=== PATIENT | female | born 1970 | race American Indian/Alaskan Native ===

== ENCOUNTER 2018-03-11 17:42 | Emergency (ER) | payer SELFPAY ==
[2018-03-11 18:02] VITALS: BP 141/92
[2018-03-11 19:13] LABS: HCG Qualitative,Urine Negative (Negative)
[2018-03-11 19:15] LABS: Bilirubin,Urine NEG (Negative); Blood,Urine NEG (Negative); Color,Urine Yellow (Yellow); Mucus,Urine FEW /HPF; Protein,Urine <15 mg/dL mg/dL (Negative); Urobilinogen,Urine < 2.0 mg/dL (<2.0)
== END 2018-03-11 20:45 | disposition left against medical advice (07) ==
LOC: ED 17:42
DX: R10.30 Lower abdominal pain, unspecified (principal); Z53.21 Procedure and treatment not carried out due to patient leaving prior to being seen by health care provider
CPT/HCPCS: 81001; 81025

== ENCOUNTER 2018-03-17 20:09 | Emergency (ER) | payer MEDICAID ==
[2018-03-17 20:26] VITALS: BP 148/95
--- NOTE | 2018-03-17 22:55 | Emergency Department Report ---
ED ENT HPI - General Chief complaint: Sore Throat Stated complaint: BODY ACHES Time Seen by Provider: 03/17/18 22:37 Source: patient Mode of arrival: Ambulatory Limitations: No Limitations - History of Present Illness Initial comments: 47-year-old female presents to the emergency room for chills body aches for throat and nasal congestion runny nose and sneezing and watery eyes cough. Patient also complains of faintness or peeling after getting nails done at a salon several days ago. Patient reports she has now allergy to Bactrim she reports that she is out of her lisinopril 10 mg daily past medical history of hypertension gastric ulcer herniated disc gallstones cyst on ovary. MD complaint: sore throat -: days(s) (4) Location: R ear (itchy ears), L ear (itchy ears), throat Severity: mild Consistency: intermittent Improves with: none Worsens with: none Associated Symptoms: cough, sore throat, rhinorrhea, other (sneezing and itchy ears right eyes) - Related Data Previous Rx's Medication Instructions Recorded Last Taken Type Benzonatate [Tessalon Perle] 100 mg PO TID #15 capsule 03/17/18 Unknown Rx Cetirizine HCl [ZyrTEC] 10 mg PO QDAY #30 capsule 03/17/18 Unknown Rx Fluticasone [Flonase] 1 spray NS QDAY #1 bottle 03/17/18 Unknown Rx Lisinopril [Zestril TAB] 10 mg PO QDAY #30 tablet 03/17/18 Unknown Rx Oxymetazoline 0.05% [Afrin] 1 spray NS QDAY 3 Days #1 bottle 03/17/18 Unknown Rx Terbinafine (Nf) [LamiSIL] 250 mg PO QDAY 36 Days #36 tablet 03/17/18 Unknown Rx Allergies Allergy/AdvReac Type Severity Reaction Status Date / Time sulfamethoxazole Allergy Itching Verified 03/11/18 17:57 [From Bactrim] trimethoprim [From Bactrim] Allergy Itching Verified 03/11/18 17:57 ED Dental HPI - General Chief complaint: Sore Throat Stated complaint: BODY ACHES Time Seen by Provider: 03/17/18 22:37 Source: patient Mode of arrival: Ambulatory Limitations: No Limitations - Related Data Previous Rx's Medication Instructions Recorded Last Taken Type Benzonatate [Tessalon Perle] 100 mg PO TID #15 capsule 03/17/18 Unknown Rx Cetirizine HCl [ZyrTEC] 10 mg PO QDAY #30 capsule 03/17/18 Unknown Rx Fluticasone [Flonase] 1 spray NS QDAY #1 bottle 03/17/18 Unknown Rx Lisinopril [Zestril TAB] 10 mg PO QDAY #30 tablet 03/17/18 Unknown Rx Oxymetazoline 0.05% [Afrin] 1 spray NS QDAY 3 Days #1 bottle 03/17/18 Unknown Rx Terbinafine (Nf) [LamiSIL] 250 mg PO QDAY 36 Days #36 tablet 03/17/18 Unknown Rx Allergies Allergy/AdvReac Type Severity Reaction Status Date / Time sulfamethoxazole Allergy Itching Verified 03/11/18 17:57 [From Bactrim] trimethoprim [From Bactrim] Allergy Itching Verified 03/11/18 17:57 ED Review of Systems ROS: Stated complaint: BODY ACHES Other details as noted in HPI ENT: throat pain (itching), congestion, other (rhinorrhea, sneezing, ear itching ) Respiratory: cough Gastrointestinal: denies: abdominal pain, nausea, diarrhea Genitourinary: denies: urgency, dysuria, discharge Musculoskeletal: denies: back pain, joint swelling, arthralgia Skin: rash (both hands peeling and itchiness) Neurological: denies: headache, weakness, paresthesias Psychiatric: denies: anxiety, depression Hematological/Lymphatic: denies: easy bleeding, easy bruising ED Past Medical Hx - Past Medical History Previous Medical History?: Yes Hx Hypertension: Yes Additional medical history: Gastric ulcer, heriated disc, gallstones, cyst on ovaries - Surgical History Past Surgical History?: No - Social History Smoking Status: Light Tobacco Smoker Substance Use Type: None - Medications Home Medications: Home Medications Medication Instructions Recorded Confirmed Last Taken Type Benzonatate [Tessalon Perle] 100 mg PO TID #15 capsule 03/17/18 Unknown Rx Cetirizine HCl [ZyrTEC] 10 mg PO QDAY #30 capsule 03/17/18 Unknown Rx Fluticasone [Flonase] 1 spray NS QDAY #1 bottle 03/17/18 Unknown Rx Lisinopril [Zestril TAB] 10 mg PO QDAY #30 tablet 03/17/18 Unknown Rx Oxymetazoline 0.05% [Afrin] 1 spray NS QDAY 3 Days #1 bottle 03/17/18 Unknown Rx Terbinafine (Nf) [LamiSIL] 250 mg PO QDAY 36 Days #36 tablet 03/17/18 Unknown Rx ED Physical Exam - General Limitations: No Limitations General appearance: alert, in no apparent distress - Head Head exam: Present: atraumatic, normocephalic - Eye Eye exam: Present: EOMI, other (watery eyes that is clear) - ENT ENT exam: Present: mucous membranes moist, TM's normal bilaterally, other (post nasal drip) - Neck Neck exam: Present: full ROM. Absent: tenderness, lymphadenopathy - Respiratory Respiratory exam: Present: normal lung sounds bilaterally. Absent: respiratory distress - Cardiovascular Cardiovascular Exam: Present: regular rate, normal rhythm. Absent: systolic murmur, diastolic murmur, rubs, gallop - GI/Abdominal GI/Abdominal exam: Present: soft, normal bowel sounds - Extremities Exam Extremities exam: Present: normal inspection - Neurological Exam Neurological exam: Present: alert, oriented X3 - Psychiatric Psychiatric exam: Present: normal affect, normal mood - Skin Skin exam: Present: warm, dry, intact, normal color. Absent: rash ED Course Vital Signs 03/17/18 20:22 Temperature 99.2 F Pulse Rate 75 Respiratory 16 Rate Blood Pressure 148/95 O2 Sat by Pulse 100 Oximetry ED Medical Decision Making - Medical Decision Making Patient has been evaluated by this provider fast track. Patient appears to have allergic rhinitis We'll place patient on Flonase, Afrin, Zyrtec, Tessalon Perles, lisinopril 10 mg for hypertension. And for her hand fungus is on terbinafine 250 mg daily for 6 weeks and a referral to [facility] for follow-up. Critical care attestation.: If time is entered above; I have spent that time in minutes in the direct care of this critically ill patient, excluding procedure time. ED Disposition Clinical Impression: Tinea Allergic rhinitis Qualifiers: Allergic rhinitis trigger: unspecified Allergic rhinitis seasonality: unspecified Qualified Code(s): J30.9 - Allergic rhinitis, unspecified Hypertension Qualifiers: Hypertension type: unspecified Qualified Code(s): I10 - Essential (primary) hypertension Disposition: DC-01 TO HOME OR SELFCARE Is pt being admited?: No Does the pt Need Aspirin: No Condition: Stable Instructions: Hypertension (ED), Allergic Rhinitis (ED) Additional Instructions: Please take medications as prescribed. It is very important free to follow up with her primary care provider and she will need to have blood work ordered and checked while taking terbinafine. Prescriptions: Benzonatate [Tessalon Perle] 100 mg PO TID #15 capsule Cetirizine HCl [ZyrTEC] 10 mg PO QDAY #30 capsule Fluticasone [Flonase] 1 spray NS QDAY #1 bottle Lisinopril [Zestril TAB] 10 mg PO QDAY #30 tablet Oxymetazoline 0.05% [Afrin] 1 spray NS QDAY 3 Days #1 bottle Terbinafine (Nf) [LamiSIL] 250 mg PO QDAY 36 Days #36 tablet Referrals: PRIMARY CARE, [Primary Care Provider] - 3-5 Days Forms: Work/School Release Form(ED)
== END 2018-03-17 23:20 | disposition home or self-care (01) ==
LOC: ED 20:09
DX: J30.9 Allergic rhinitis, unspecified (principal); B35.9 Dermatophytosis, unspecified; I10 Essential (primary) hypertension; F17.200 Nicotine dependence, unspecified, uncomplicated; Z88.2 Allergy status to sulfonamides
CPT/HCPCS: 99282

== ENCOUNTER 2018-03-21 15:25 | Emergency (ER) | payer MEDICAID ==
[2018-03-21] MEDS ORDERED: TORADOL IM ONE (21:42)
--- NOTE | 2018-03-21 21:50 | Emergency Department Report ---
ED Back Pain/Injury HPI - General Chief Complaint: Back Pain/Injury Stated Complaint: LOWER BACK PAIN Time Seen by Provider: 03/21/18 21:39 Source: patient Limitations: No Limitations - History of Present Illness Initial Comments: Patient is a 47-year-old [place] female who presents for low back pain is a chronic problem states for 4/ 10 back pain after bending over picking up object pain is described as achy radiating to left leg and thigh is no numbness no tingling or weakness no paralysis no loss or decreased in bowel or bladder function MD Complaint: back pain Onset/Timin -: days(s) Similar Symptoms Previously: Yes Place: home Radiation: left leg Severity: moderate Severity scale (0 -10): 4 Quality: aching Consistency: intermittent Improves With: other (rest ) Worsens With: movement Context: turning/twisting, bending Associated Symptoms: denies other symptoms. denies: weakness, numbness, difficulty walking, cough, difficulty urinating, incontinence, fever/chills, headaches, abdominal pain, loss of appetite, nausea/vomiting, rash, seizure, shortness of breath, syncope - Related Data Previous Rx's Medication Instructions Recorded Last Taken Type Benzonatate [Tessalon Perle] 100 mg PO TID #15 capsule 03/17/18 Unknown Rx Cetirizine HCl [ZyrTEC] 10 mg PO QDAY #30 capsule 03/17/18 Unknown Rx Fluticasone [Flonase] 1 spray NS QDAY #1 bottle 03/17/18 Unknown Rx Lisinopril [Zestril TAB] 10 mg PO QDAY #30 tablet 03/17/18 Unknown Rx Oxymetazoline 0.05% [Afrin] 1 spray NS QDAY 3 Days #1 bottle 03/17/18 Unknown Rx Terbinafine (Nf) [LamiSIL] 250 mg PO QDAY 36 Days #36 tablet 03/17/18 Unknown Rx Cyclobenzaprine [Flexeril] 10 mg PO TID PRN #30 tablet 03/21/18 Unknown Rx Menthol/Camphor [Ramona [place] 18.9 gm TP TID PRN #1 tube 03/21/18 Unknown Rx Ointment] Naproxen 500 mg PO BID PRN #30 tablet 03/21/18 Unknown Rx Allergies Allergy/AdvReac Type Severity Reaction Status Date / Time sulfamethoxazole Allergy Itching Verified 03/11/18 17:57 [From Bactrim] trimethoprim [From Bactrim] Allergy Itching Verified 03/11/18 17:57 ED Review of Systems ROS: Stated complaint: LOWER BACK PAIN Other details as noted in HPI Constitutional: denies: chills, fever Eyes: denies: eye pain, eye discharge, vision change ENT: denies: ear pain, throat pain Respiratory: denies: cough, shortness of breath, wheezing Cardiovascular: denies: chest pain, palpitations Endocrine: no symptoms reported Gastrointestinal: denies: abdominal pain, nausea, diarrhea Genitourinary: denies: urgency, dysuria, discharge Musculoskeletal: back pain, arthralgia. denies: joint swelling, myalgia Skin: denies: rash, lesions Neurological: denies: headache, weakness, paresthesias Psychiatric: denies: anxiety, depression ED Past Medical Hx - Past Medical History Previous Medical History?: Yes Hx Hypertension: Yes Additional medical history: Gastric ulcer, heriated disc, gallstones, cyst on ovaries - Surgical History Past Surgical History?: Yes Hx Cholecystectomy: Yes - Social History Smoking Status: Current Some Day Smoker Substance Use Type: Alcohol - Medications Home Medications: Home Medications Medication Instructions Recorded Confirmed Last Taken Type Benzonatate [Tessalon Perle] 100 mg PO TID #15 capsule 03/17/18 Unknown Rx Cetirizine HCl [ZyrTEC] 10 mg PO QDAY #30 capsule 03/17/18 Unknown Rx Fluticasone [Flonase] 1 spray NS QDAY #1 bottle 03/17/18 Unknown Rx Lisinopril [Zestril TAB] 10 mg PO QDAY #30 tablet 03/17/18 Unknown Rx Oxymetazoline 0.05% [Afrin] 1 spray NS QDAY 3 Days #1 bottle 03/17/18 Unknown Rx Terbinafine (Nf) [LamiSIL] 250 mg PO QDAY 36 Days #36 tablet 03/17/18 Unknown Rx Cyclobenzaprine [Flexeril] 10 mg PO TID PRN #30 tablet 03/21/18 Unknown Rx Menthol/Camphor [Ramona [place] 18.9 gm TP TID PRN #1 tube 03/21/18 Unknown Rx Ointment] Naproxen 500 mg PO BID PRN #30 tablet 03/21/18 Unknown Rx ED Physical Exam - General Limitations: No Limitations General appearance: alert, in no apparent distress - Head Head exam: Present: atraumatic, normocephalic - Eye Eye exam: Present: normal appearance - ENT ENT exam: Present: mucous membranes moist - Neck Neck exam: Present: normal inspection - Respiratory Respiratory exam: Present: normal lung sounds bilaterally. Absent: respiratory distress - Cardiovascular Cardiovascular Exam: Present: regular rate, normal rhythm. Absent: systolic murmur, diastolic murmur, rubs, gallop - GI/Abdominal GI/Abdominal exam: Present: soft, normal bowel sounds - Rectal Rectal exam: Present: deferred - Extremities Exam Extremities exam: Present: normal inspection - Back Exam Back exam: Present: full ROM, tenderness, muscle spasm, paraspinal tenderness. Absent: CVA tenderness (R), CVA tenderness (L), vertebral tenderness, rash noted - Expanded Back Exam Expanded Back exam: Absent: saddle anesthesia Back exam: Sciatic Notch Tenderness: Left, Positive Straight Leg Raise: Left, Negative Straight Leg Raising: Right - Neurological Exam Neurological exam: Present: alert, oriented X3, CN II-XII intact, normal gait, reflexes normal. Absent: motor sensory deficit - Expanded Neurological Exam Expanded Patient oriented to: Present: person, place, time Speech: Present: fluid speech Cranial nerves: EOM's Intact: Normal, Gag Reflex: Normal, Tongue Deviation: Normal, Nystagmus: Normal, Facial Sensation: Normal Cerebellar function: Finger to Nose: Normal, Heel to Dumont: Normal, Romberg: Normal Sensory exam: Upper Extremity Light Touch: Normal, Upper Extremity Pin Prick: Normal, Upper Extremity Temperature: Normal, UE 2 Point Discrimination: Normal, Lower Extremity Light Touch: Normal, Lower Extremity Pin Prick: Normal, Lower Extremity Temperature: Normal, LE 2 Point Discrimination: Normal Motor strength exam: RUE: 5, LUE: 5, RLE: 5, LLE: 5 DTR: bicep (R): 2+, bicep (L): 2+, tricep (R): 2+, tricep (L): 2+, knee (R): 2+ , knee (L): 2+, ankle (R): 2+, ankle (L): 2+ Best Eye Response (Nitza): (4) open spontaneously Best Motor Response (Nitza): (6) obeys commands Best Verbal Response (Nitza): (5) oriented Nitza Total: 15 - Psychiatric Psychiatric exam: Present: normal affect, normal mood - Skin Skin exam: Present: warm, dry, intact, normal color. Absent: rash ED Course Vital Signs 03/21/18 16:01 Temperature 98 F Pulse Rate 71 Respiratory 18 Rate Blood Pressure 159/87 O2 Sat by Pulse 100 Oximetry ED Medical Decision Making - Medical Decision Making this acute on chronic low back pain no posterior point tenderness no weakness no loss or decrease in bowel or bladder function, plan; naproxen, flexeril tiger balm pt will follow up with here pcp doctor in 2-3 days pt verbalized agreement and understanding of same. Critical care attestation.: If time is entered above; I have spent that time in minutes in the direct care of this critically ill patient, excluding procedure time. ED Disposition Clinical Impression: Low back strain Qualifiers: Encounter type: initial encounter Qualified Code(s): S39.012A - Strain of muscle, fascia and tendon of lower back, initial encounter Chronic low back pain Qualifiers: Back pain laterality: left Sciatica presence: with sciatica Sciatica laterality : sciatica of left side Qualified Code(s): M54.42 - Lumbago with sciatica, left side; G89.29 - Other chronic pain Disposition: TO HOME OR SELFCARE Is pt being admited?: No Does the pt Need Aspirin: No Condition: Good Instructions: Low Back Strain (ED), Core Strengthening Exercises (GEN) Prescriptions: Cyclobenzaprine [Flexeril] 10 mg PO TID PRN #30 tablet PRN Reason: Muscle Spasm Menthol/Camphor [Ramona [place] Ointment] 18.9 gm TP TID PRN #1 tube PRN Reason: pain Naproxen 500 mg PO BID PRN #30 tablet PRN Reason: pain Referrals: [facility] [Outside] - 3-5 Days Forms: Work/School Release Form(ED) Time of Disposition: 21:59
[2018-03-21 22:36] VITALS: BP 146/76
== END 2018-03-21 22:34 | disposition home or self-care (01) ==
LOC: ED 15:25
DX: S39.012A Strain of muscle, fascia and tendon of lower back, initial encounter (principal); I10 Essential (primary) hypertension; F17.200 Nicotine dependence, unspecified, uncomplicated; Z90.49 Acquired absence of other specified parts of digestive tract; Z88.2 Allergy status to sulfonamides; W20.8XXA Other cause of strike by thrown, projected or falling object, initial encounter; Y93.89 Activity, other specified; Y92.89 Other specified places as the place of occurrence of the external cause; Y99.8 Other external cause status
CPT/HCPCS: 96372; 99282; J1885

== ENCOUNTER 2018-07-17 14:56 | Emergency (ER) | payer MEDICAID, OTHER ==
[2018-07-17 15:36] LABS: Basophils % (Auto) 0.6 % (0.0-1.8); Eosinophils # (Auto) 0.1 K/mm3 (0.0-0.4); Eosinophils % (Auto) 1.2 % (0.0-4.3); Hematocrit 36.9 % (30.3-42.9); Hemoglobin 12.2 gm/dl (10.1-14.3); Lymphocytes # (Auto) 1.5 K/mm3 (1.2-5.4); Lymphocytes % (Auto) 33.9 % (13.4-35.0); Mean Corpuscular HGB Conc 33 % (30-34); Mean Corpuscular Volume 84 fl (79-97); Monocytes # (Auto) 0.4 K/mm3 (0.0-0.8); Monocytes % (Auto) 8.8 % (0.0-7.3); Platelet Count 287 K/mm3 (140-440); Red Blood Count 4.39 M/mm3 (3.65-5.03); Red Cell Distribution Width 17.9 % (13.2-15.2)
[2018-07-17 15:53] LABS: BUN/Creatinine Ratio 15; Blood Urea Nitrogen 12 mg/dL (7-17); Calcium 9.6 mg/dL (8.4-10.2); Hemolysis Index 55
[2018-07-17] MEDS ORDERED: NORVASC PO ONE (19:09)
[2018-07-17 19:39] VITALS: BP 136/97
--- NOTE | 2018-07-17 19:57 | Emergency Department Report ---
ED Chest Pain HPI - General Chief Complaint: Chest Pain Stated Complaint: HYPERTENSION Source: patient Mode of arrival: Ambulatory Limitations: No Limitations - History of Present Illness Initial Comments: This is a 48 year-old female who presents for medication refill and chest discomfort. Patient states she ran out of blood pressure medication one to 2 weeks ago. She started having chest discomfort center chest 2 days ago with blurry vision and low back pain. Patient states back pain is chronic and she is seen in pain management in [place]. Her primary care provider is in [place] where she lives. Patient states she was seen at [facility] 5 days ago and had STD screen and an multiple labs but she could not wait so she left prior to results. She noticed her blood pressure was elevated today and decided to come in for evaluation. She denies nausea or vomiting, radiating pain, sensation of pressure on the chest, fever, or myalgia. MD Complaint: chest pain Onset/Timin -: days(s) Onset: during rest Pain Location: substernal Pain Radiation: none Severity: moderate Severity scale (0 -10): 5 Quality: aching Consistency: intermittent Improves With: nothing Worsens With: exertion Treatments Prior to Arrival: none Aspirin use within the Past 7 Days: (0) No - Related Data On Oral Contraceptives: No Previous Rx's Medication Instructions Recorded Last Taken Type Benzonatate [Tessalon Perle] 100 mg PO TID #15 capsule 03/17/18 Unknown Rx Cetirizine HCl [ZyrTEC] 10 mg PO QDAY #30 capsule 03/17/18 Unknown Rx Fluticasone [Flonase] 1 spray NS QDAY #1 bottle 03/17/18 Unknown Rx Lisinopril [Zestril TAB] 10 mg PO QDAY #30 tablet 03/17/18 Unknown Rx Oxymetazoline 0.05% [Afrin] 1 spray NS QDAY 3 Days #1 bottle 03/17/18 Unknown Rx Terbinafine (Nf) [LamiSIL] 250 mg PO QDAY 36 Days #36 tablet 03/17/18 Unknown Rx Cyclobenzaprine [Flexeril] 10 mg PO TID PRN #30 tablet 03/21/18 Unknown Rx Menthol/Camphor [[place] 18.9 gm TP TID PRN #1 tube 03/21/18 Unknown Rx Ointment] Naproxen 500 mg PO BID PRN #30 tablet 03/21/18 Unknown Rx Lisinopril 20 mg PO DAILY #30 tablet 05/06/18 Unknown Rx Nitrofurantoin Arroyo/M-Cryst 100 mg PO Q12HR #14 capsule 05/06/18 Unknown Rx [Macrobid CAP] metroNIDAZOLE [Flagyl] 500 mg PO Q12HR #14 tab 05/06/18 Unknown Rx Fluconazole [Diflucan TAB] 200 mg PO QDAY PRN 2 Days #2 tablet 05/28/18 Unknown Rx Ibuprofen [Motrin 600 MG tab] 600 mg PO Q8H PRN #20 tablet 05/28/18 Unknown Rx cephALEXin [Keflex] 500 mg PO Q12H 7 Days #14 cap 05/28/18 Unknown Rx metroNIDAZOLE [Flagyl] 500 mg PO Q12HR 7 Days #14 tab 05/28/18 Unknown Rx Amlodipine Besylate [Norvasc] 5 mg PO DAILY #30 tablet 07/17/18 Unknown Rx Allergies Allergy/AdvReac Type Severity Reaction Status Date / Time sulfamethoxazole Allergy Itching Verified 07/17/18 15:08 [From Bactrim] trimethoprim [From Bactrim] Allergy Itching Verified 07/17/18 15:08 Heart Score - HEART Score History: Slightly suspicious EKG: Normal Age: 45-65 Risk factors: 1-2 risk factors Troponin: < normal limit HEART Score: 2 - Critical Actions Critical Actions: 0-3 pts:0.9-1.7%risk of adverse cardiac event.Candidate for discharge ED Review of Systems ROS: Stated complaint: HYPERTENSION Other details as noted in HPI Constitutional: denies: chills, fever Eyes: vision change. denies: eye pain, eye discharge ENT: denies: ear pain, throat pain Respiratory: denies: cough, shortness of breath, wheezing Cardiovascular: chest pain. denies: palpitations Gastrointestinal: denies: abdominal pain, nausea, diarrhea Musculoskeletal: back pain. denies: joint swelling, arthralgia Neurological: headache. denies: weakness, paresthesias Psychiatric: denies: anxiety, depression ED Past Medical Hx - Past Medical History Hx Hypertension: Yes Additional medical history: Gastric ulcer, heriated disc, gallstones, cyst on ovaries - Surgical History Hx Cholecystectomy: Yes - Social History Smoking Status: Current Some Day Smoker Substance Use Type: Alcohol - Medications Home Medications: Home Medications Medication Instructions Recorded Confirmed Last Taken Type Benzonatate [Tessalon Perle] 100 mg PO TID #15 capsule 03/17/18 Unknown Rx Cetirizine HCl [ZyrTEC] 10 mg PO QDAY #30 capsule 03/17/18 Unknown Rx Fluticasone [Flonase] 1 spray NS QDAY #1 bottle 03/17/18 Unknown Rx Lisinopril [Zestril TAB] 10 mg PO QDAY #30 tablet 03/17/18 Unknown Rx Oxymetazoline 0.05% [Afrin] 1 spray NS QDAY 3 Days #1 bottle 03/17/18 Unknown Rx Terbinafine (Nf) [LamiSIL] 250 mg PO QDAY 36 Days #36 tablet 03/17/18 Unknown Rx Cyclobenzaprine [Flexeril] 10 mg PO TID PRN #30 tablet 03/21/18 Unknown Rx Menthol/Camphor [[place] 18.9 gm TP TID PRN #1 tube 03/21/18 Unknown Rx Ointment] Naproxen 500 mg PO BID PRN #30 tablet 03/21/18 Unknown Rx Lisinopril 20 mg PO DAILY #30 tablet 05/06/18 Unknown Rx Nitrofurantoin Arroyo/M-Cryst 100 mg PO Q12HR #14 capsule 05/06/18 Unknown Rx [Macrobid CAP] metroNIDAZOLE [Flagyl] 500 mg PO Q12HR #14 tab 05/06/18 Unknown Rx Fluconazole [Diflucan TAB] 200 mg PO QDAY PRN 2 Days #2 tablet 05/28/18 Unknown Rx Ibuprofen [Motrin 600 MG tab] 600 mg PO Q8H PRN #20 tablet 05/28/18 Unknown Rx cephALEXin [Keflex] 500 mg PO Q12H 7 Days #14 cap 05/28/18 Unknown Rx metroNIDAZOLE [Flagyl] 500 mg PO Q12HR 7 Days #14 tab 05/28/18 Unknown Rx Amlodipine Besylate [Norvasc] 5 mg PO DAILY #30 tablet 07/17/18 Unknown Rx ED Physical Exam - General Limitations: No Limitations General appearance: alert, in no apparent distress - ENT ENT exam: Present: mucous membranes moist - Respiratory Respiratory exam: Present: normal lung sounds bilaterally. Absent: respiratory distress, wheezes, rales, rhonchi, stridor, chest wall tenderness - Cardiovascular Cardiovascular Exam: Present: regular rate, normal rhythm. Absent: systolic murmur, diastolic murmur, rubs, gallop - GI/Abdominal GI/Abdominal exam: Present: soft, normal bowel sounds. Absent: distended, tenderness, guarding, rebound, rigid, organomegaly, mass - Back Exam Back exam: Absent: CVA tenderness (R), CVA tenderness (L) - Neurological Exam Neurological exam: Present: alert, oriented X3 - Psychiatric Psychiatric exam: Present: normal affect, normal mood - Skin Skin exam: Present: warm, dry, intact, normal color. Absent: rash ED Course Vital Signs 07/17/18 07/17/18 15:08 19:37 Temperature 98.6 F Pulse Rate 68 Respiratory 18 Rate Blood Pressure 175/112 Blood Pressure 136/97 [Right] O2 Sat by Pulse 97 Oximetry ED Medical Decision Making - Lab Data Result diagrams: 07/17/18 15:14 07/17/18 15:14 Lab Results 07/17/18 07/17/18 07/17/18 Range/Units 15:14 15:14 18:33 WBC 4.3 L (4.5-11.0) K/mm3 RBC 4.39 (3.65-5.03) M/mm3 Hgb 12.2 (10.1-14.3) gm/dl Hct 36.9 (30.3-42.9) % MCV 84 (79-97) fl MCH 28 (28-32) pg MCHC 33 (30-34) % RDW 17.9 H (13.2-15.2) % Plt Count 287 (140-440) K/mm3 Lymph % (Auto) 33.9 (13.4-35.0) % Arroyo % (Auto) 8.8 H (0.0-7.3) % Eos % (Auto) 1.2 (0.0-4.3) % Baso % (Auto) 0.6 (0.0-1.8) % Lymph # 1.5 (1.2-5.4) K/mm3 Arroyo # 0.4 (0.0-0.8) K/mm3 Eos # 0.1 (0.0-0.4) K/mm3 Baso # 0.0 (0.0-0.1) K/mm3 Seg Neutrophils % 55.5 (40.0-70.0) % Seg Neutrophils # 2.4 (1.8-7.7) K/mm3 Sodium 134 L (137-145) mmol/L Potassium 4.3 (3.6-5.0) mmol/L Chloride 94.9 L (98-107) mmol/L Carbon Dioxide 27 (22-30) mmol/L Anion Gap 16 mmol/L BUN 12 (7-17) mg/dL Creatinine 0.8 (0.7-1.2) mg/dL Estimated GFR > 60 ml/min BUN/Creatinine Ratio 15 % Glucose 79 (65-100) mg/dL Calcium 9.6 (8.4-10.2) mg/dL Troponin T < 0.010 < 0.010 (0.00-0.029) ng/mL Urine Color (Yellow) Urine Turbidity (Clear) Urine pH (5.0-7.0) Ur Specific [place] (1.003-1.030) Urine Protein (Negative) mg/dL Urine Glucose (UA) (Negative) mg/dL Urine Ketones (Negative) mg/dL Urine Blood (Negative) Urine Nitrite (Negative) Urine Bilirubin (Negative) Urine Urobilinogen (<2.0) mg/dL Ur Leukocyte Esterase (Negative) Urine WBC (Auto) (0.0-6.0) /HPF Urine RBC (Auto) (0.0-6.0) /HPF U Epithel Cells (Auto) (0-13.0) /HPF 07/17/18 Range/Units 20:20 WBC (4.5-11.0) K/mm3 RBC (3.65-5.03) M/mm3 Hgb (10.1-14.3) gm/dl Hct (30.3-42.9) % MCV (79-97) fl MCH (28-32) pg MCHC (30-34) % RDW (13.2-15.2) % Plt Count (140-440) K/mm3 Lymph % (Auto) (13.4-35.0) % Arroyo % (Auto) (0.0-7.3) % Eos % (Auto) (0.0-4.3) % Baso % (Auto) (0.0-1.8) % Lymph # (1.2-5.4) K/mm3 Arroyo # (0.0-0.8) K/mm3 Eos # (0.0-0.4) K/mm3 Baso # (0.0-0.1) K/mm3 Seg Neutrophils % (40.0-70.0) % Seg Neutrophils # (1.8-7.7) K/mm3 Sodium (137-145) mmol/L Potassium (3.6-5.0) mmol/L Chloride (98-107) mmol/L Carbon Dioxide (22-30) mmol/L Anion Gap mmol/L BUN (7-17) mg/dL Creatinine (0.7-1.2) mg/dL Estimated GFR ml/min BUN/Creatinine Ratio % Glucose (65-100) mg/dL Calcium (8.4-10.2) mg/dL Troponin T (0.00-0.029) ng/mL Urine Color Yellow (Yellow) Urine Turbidity Slightly-cloudy (Clear) Urine pH 6.0 (5.0-7.0) Ur Specific [place] 1.003 (1.003-1.030) Urine Protein <15 mg/dl (Negative) mg/dL Urine Glucose (UA) Neg (Negative) mg/dL Urine Ketones Neg (Negative) mg/dL Urine Blood Sm (Negative) Urine Nitrite Neg (Negative) Urine Bilirubin Neg (Negative) Urine Urobilinogen < 2.0 (<2.0) mg/dL Ur Leukocyte Esterase Tr (Negative) Urine WBC (Auto) 2.0 (0.0-6.0) /HPF Urine RBC (Auto) 1.0 (0.0-6.0) /HPF U Epithel Cells (Auto) 17.0 H (0-13.0) /HPF - Medical Decision Making Patient was examined by me. Vitals are normal and patient is in no acute distress. Obtained labs and EKG. EKG interpreted by attending. Leukopenia, all of the labs are unremarkable. Patient states she cannot wait any longer. Advised to wait for a second troponin prior to discharge. Started patient on amlodipine 5 mg by mouth daily. Patient signed AMA forms. Critical care attestation.: If time is entered above; I have spent that time in minutes in the direct care of this critically ill patient, excluding procedure time. ED Disposition Clinical Impression: Left against medical advice Disposition: DC-01 TO HOME OR SELFCARE Is pt being admited?: No Does the pt Need Aspirin: No Condition: Stable Instructions: Chest Pain (ED), Hypertension (ED) Additional Instructions: Encourage stop smoking to reduce cardiovascular risk. Moderate caffeine consumption is acceptable. Begin and maintain aerobic exercise, with a goal of at least 30 minutes of moderate intensity, dynamic aerobic exercise (walking, jogging, cycling, or swimming) 5 days per week to total 150 minutes as tolerated or recommended by a physician. Take medication daily as prescribed. Follow up with Primary Care Provider in 1 week. Prescriptions: Amlodipine Besylate [Norvasc] 5 mg PO DAILY #30 tablet Referrals: PRIMARY CARE [Primary Care Provider] - 3-5 Days Forms: AMA Form
[2018-07-17 20:53] LABS: Bilirubin,Urine NEG (Negative); Blood,Urine SM (Negative); Color,Urine Yellow (Yellow); Protein,Urine <15 mg/dL mg/dL (Negative); Urobilinogen,Urine < 2.0 mg/dL (<2.0)
== END 2018-07-17 20:48 | disposition home or self-care (01) ==
LOC: ED 14:56
DX: I10 Essential (primary) hypertension (principal); F17.200 Nicotine dependence, unspecified, uncomplicated; Z90.49 Acquired absence of other specified parts of digestive tract; Z88.2 Allergy status to sulfonamides; Z88.5 Allergy status to narcotic agent
CPT/HCPCS: 36415; 80048; 81001; 84484; 85025; 93005; 93010; 99284